=== PATIENT | male | born 1970 | race Caucasian/White ===

== ENCOUNTER 2017-09-27 14:10 | Outpatient (CLI) | payer BC, SELFPAY ==
[~2017-09-27 14:10] MED LIST: Sodium Chloride 0.9% 15 ML NEB ONE
--- NOTE | 2017-09-27 18:00 | HP ---
DATE OF SERVICE: 09/27/2017 HISTORY OF PRESENT ILLNESS: Mr. Arnold Roberts is a very pleasant 46-year- old gentleman who [facility] for evaluation of multiple ulcerations of the right lower leg. The patient's medical history is significant for deep venous thrombosis of the right lower extremity. The patient states that he developed a deep venous thrombosis of the right lower extremity in 2014; however, he never experienced any ulcerations of his right lower leg until 2 months ago. The patient has been treating his wounds with the application of a topical antibiotic preparation followed by gauze and a compression garment which he purchased from [employer]. The patient has no other complaints today. He denies any fever or chills. The patient states that he took Coumadin for approximately 6 months after he was diagnosed with right lower extremity deep venous thrombosis. PAST MEDICAL HISTORY: Deep venous thrombosis of right lower extremity. PAST SURGICAL HISTORY: Left chest surgery for empyema. MEDICATIONS: 1. Lasix. 2. Ibuprofen. 3. Aleve. ALLERGIES: No known diagnosed allergies. SOCIAL HISTORY: Significant for tobacco use of up to 1 pack of cigarettes per day for 27 years. The patient states that he began consuming alcohol at age 15 or 16. He describes his consumption of alcohol as "social." FAMILY HISTORY: Negative for diabetes mellitus or coronary artery disease. PHYSICAL EXAMINATION: VITAL SIGNS: Temperature 97.5, pulse 97, respirations 16, blood pressure 155/ 93. GENERAL: A 46-year-old gentleman sitting on chair in examination room in no acute distress. HEENT: Normocephalic, atraumatic. NECK: No nuchal rigidity. CHEST: Clear to auscultation. CARDIAC: Regular rate and rhythm. ABDOMEN: Soft. EXTREMITIES: Multiple ulcerations of the right lower leg are present. Granulation tissue is present within the margins of each wound. No purulent drainage is associated with any of the wounds. No cellulitis of the right lower leg is appreciated. No maceration of the skin of the periwound of any of the wounds is noted. A dorsalis pedis pulse is easily palpable on the right. Edema of the right foot and lower leg is also present on exam today. Numerous varicosities are present over the right foot and lower leg. Discoloration of the skin of the right lower leg is also present secondary to hemosiderin deposition. NEUROLOGIC: Grossly nonfocal. ASSESSMENT AND PLAN: 1. 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 Silverlon, Webril, and the 3M Coban 2-layer compression system will be applied to the ulcerations today. No antibiotics will be prescribed today based upon the appearance of the wounds. I will see Mr. Roberts again in 1 week. The patient has been instructed to keep his compression wrap clean and dry until his follow-up visit in 1 week. The patient understands and is in agreement with the preceding treatment plan. 2. History of right lower extremity deep venous thrombosis. MTDD
== END 2017-09-27 14:11 | disposition home or self-care (01) ==
LOC: WCC 14:10
PROVIDERS: ATTEND Family Medicine
DX: I83.218 Varicose veins of right lower extremity with both ulcer of other part of lower extremity and inflammation (principal); L97.919 Non-pressure chronic ulcer of unspecified part of right lower leg with unspecified severity; Z86.718 Personal history of other venous thrombosis and embolism
CPT/HCPCS: 29581; 99203; A4218; G0463

== ENCOUNTER 2017-10-04 10:12 | Outpatient (CLI) | payer BC ==
[~2017-10-04 10:12] MED LIST changes: +Lidocaine 2% Jelly 5 ML TUBE ONE
--- NOTE | 2017-10-04 12:18 | PRG ---
DATE OF SERVICE: 10/04/2017 HISTORY: Mr. Arnold Roberts is a very pleasant 46-year-old gentleman who presents to the [facility] for evaluation of multiple ulcerations of the right lower leg. The patient's medical history is significant for deep venous thrombosis of the right lower extremity. The patient stated that he developed a deep venous thrombosis of the right lower extremity in 2014. He stated that he never experienced any ulcerations of his right lower leg, however, until 2 months prior to his initial presentation to the [facility]. The patient stated he had been treating his wounds with the application of a topical antibiotic preparation followed by gauze and a compression garment, which he purchased from [employer]. The patient previously stated that he took Coumadin for approximately 6 months after he was diagnosed with right lower extremity deep venous thrombosis. The patient complains of pain associated with his ulcerations. After being seen in the [facility] Center, Silverlon, Webril, and the 3M Coban 2-layer compression system were applied to the ulcerations of the right lower leg. PHYSICAL EXAMINATION: VITAL SIGNS: Temperature 97.7, pulse 86, respirations 16, blood pressure 143/ 92. EXTREMITIES: Three ulcerations of the right lower leg are present, which measure approximately 1.2 x 1.0 cm, 2.0 x 2.0 cm, and 1.2 x 1.5 cm. Granulation tissue is present within the margins of each wound. No purulent drainage is associated with any of the wounds. No cellulitis of the right lower leg is appreciated. No maceration of the skin of the periwound of any of the wounds is noted. Edema of the right foot and lower leg is present on exam today. Numerous varicosities are present over the right foot and lower leg. Discoloration of the skin of the right lower leg is also present secondary to hemosiderin deposition. ASSESSMENT AND PLAN: 1. 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 Silverlon, Webril, and the 3M Coban 2-layer compression system will be applied to the ulcerations today. The patient is to discontinue the compression wrap in 1 week and begin dressing changes of Silverlon on a daily basis after cleansing and irrigation in conjunction with the use of a compression garment. The patient has also been given a prescription for Tylenol #3, #20, one to two p.o. q.4-6 hours p.r.n. pain. I will see Mr. Roberts again in 2 weeks. 2. History of right lower extremity deep venous thrombosis. MTDD
== END 2017-10-04 10:13 | disposition home or self-care (01) ==
LOC: WCC 10:12
PROVIDERS: ATTEND Family Medicine
DX: I83.218 Varicose veins of right lower extremity with both ulcer of other part of lower extremity and inflammation (principal); L97.919 Non-pressure chronic ulcer of unspecified part of right lower leg with unspecified severity; Z86.718 Personal history of other venous thrombosis and embolism
CPT/HCPCS: 29581; A4218

== ENCOUNTER 2021-07-26 11:45 | Outpatient (CLI) | payer BC | END 2021-07-26 11:46 | disposition home or self-care (01) | LOC: BICRAD 11:45 | PROVIDERS: ATTEND Nurse Practitioner Family | DX: M25.562 Pain in left knee (principal); Z87.891 Personal history of nicotine dependence ==